=== PATIENT | male | born 1975 ===

== ENCOUNTER 2023-10-13 10:44 | Emergency (ER) | payer SELFPAY ==
[2023-10-13] MEDS: Lidocaine 1% 5 ML VIAL INJECT ONE (13:08)
[2023-10-13] MEDS: Lidocaine 1% 5 ML VIAL ONE ×2 (13:32)
[2023-10-13] MEDS: Bacitracin Oint 1 GM U/D Packet TOP ONE (14:34)
== END 2023-10-13 14:40 | disposition home or self-care (01) ==
LOC: DL.ED 10:44
DX: S61.217A Laceration without foreign body of left little finger without damage to nail, initial encounter (principal); I10 Essential (primary) hypertension; W23.1XXA Caught, crushed, jammed, or pinched between stationary objects, initial encounter
CPT/HCPCS: 12002; 73140-F4; 99283; A9270-GY; J3490